=== PATIENT | male | born 1940 | race Caucasian/White ===

== ENCOUNTER 2023-02-17 09:50 | Day surgery (SDC) | payer MEDICARE ==
[2023-02-17] MEDS ORDERED: fentaNYL 100 MCG/2 ML SDV IV ONE (09:51)
[2023-02-17] MEDS ORDERED: Sodium Chloride 0.9% 10 ML Syringe IV ONE (09:51)
[2023-02-17] MEDS ORDERED: Midazolam 1 MG/ML 2 ML SDV IV ONE (09:51)
[2023-02-17] MEDS ORDERED: Sodium Chloride 0.9% 10 ML Syringe FLUSH PRN (10:00)
[2023-02-17] MEDS ORDERED: Lactated Ringers 1,000 ML IV SCH (10:00)
[2023-02-17] MEDS ORDERED: acetaZOLAMIDE 500 MG Cap.ER PO ONE (12:00)
== END 2023-02-17 12:36 | disposition home or self-care (01) ==
LOC: FB.SDS 09:50
PROVIDERS: ATTEND Ophthalmology
DX: Z01.818 Encounter for other preprocedural examination (principal); H25.813 Combined forms of age-related cataract, bilateral; H21.81 Floppy iris syndrome; H01.001 Unspecified blepharitis right upper eyelid; H01.004 Unspecified blepharitis left upper eyelid; E78.5 Hyperlipidemia, unspecified; I10 Essential (primary) hypertension; Z86.010 Personal history of colon polyps; Z79.01 Long term (current) use of anticoagulants; G47.00 Insomnia, unspecified; E11.9 Type 2 diabetes mellitus without complications; Z90.49 Acquired absence of other specified parts of digestive tract; Z88.1 Allergy status to other antibiotic agents; Z79.899 Other long term (current) drug therapy; Z87.891 Personal history of nicotine dependence
CPT/HCPCS: 00142; A9270-GY; J2250; J3010; J3490; V2632

== ENCOUNTER 2023-03-03 08:02 | Day surgery (SDC) | payer MEDICARE ==
[~2023-03-03 08:02] MED LIST: Lactated Ringers 1,000 ML IV PRN; Sodium Chloride 0.9% 10 ML Syringe FLUSH PRN
[2023-03-03] MEDS ORDERED: fentaNYL 100 MCG/2 ML SDV IV ONE (08:03)
[2023-03-03] MEDS ORDERED: Sodium Chloride 0.9% 10 ML Syringe IV ONE (08:03)
[2023-03-03] MEDS ORDERED: Midazolam 1 MG/ML 2 ML SDV IV ONE (08:03)
[2023-03-03] MEDS ORDERED: acetaZOLAMIDE 500 MG Cap.ER PO ONE (09:00)
== END 2023-03-03 10:58 | disposition home or self-care (01) ==
LOC: FB.SDS 08:02
PROVIDERS: ATTEND Ophthalmology
DX: E11.36 Type 2 diabetes mellitus with diabetic cataract (principal); H26.9 Unspecified cataract; H21.81 Floppy iris syndrome; I10 Essential (primary) hypertension; E78.5 Hyperlipidemia, unspecified; I82.409 Acute embolism and thrombosis of unspecified deep veins of unspecified lower extremity; Z79.01 Long term (current) use of anticoagulants; Z86.010 Personal history of colon polyps; Z90.49 Acquired absence of other specified parts of digestive tract; Z98.890 Other specified postprocedural states; Z88.1 Allergy status to other antibiotic agents; Z86.16 Personal history of COVID-19; Z87.891 Personal history of nicotine dependence; Z79.899 Other long term (current) drug therapy
CPT/HCPCS: 00142; 66982; A9270; J2250; J3010; J3490; V2632